=== PATIENT | female | born 2000 | race Caucasian/White ===

== ENCOUNTER → 2022-02-08 | Outpatient (CLI) | payer OTHER ==
--- NOTE | 2022-02-08 16:31 | NM ---
EXAMINATION TYPE: NM thyroid image only DATE OF EXAM: 02/08/2022 COMPARISON: No additional data available for correlation HISTORY: Thyroid swelling, palpitations TECHNIQUE: After the intravenous administration of 10.1 mCi Tc 99m Sodium Pertechnetate, images of th e joint of the thyroid. FINDINGS: Uptake of radiopharmaceutical is homogenous and symmetric. No abnormal decreased or increased uptake is identified. IMPRESSION: Normal thyroid scan.
== END | disposition home or self-care (01) ==
LOC: RADNMMAIN 10:48
PROVIDERS: ATTEND Family Medicine
DX: R22.0 Localized swelling, mass and lump, head (principal)
CPT/HCPCS: 78013; A9512